=== PATIENT | female | born 1940 | race African-American/Black ===

== ENCOUNTER 2017-12-12 09:00 | Inpatient (IN) | payer OTHER ==
[2017-12-12] MEDS ORDERED: LEVALBUTEROL 1.25 MG/3 ML NEB ONE ×2 (09:20→09:40)
[2017-12-12 09:47] LABS: Absolute Lymphocytes (CBC) 1.8 K/uL (0.7-4.9); Absolute Monocytes 1.2 K/uL (0.1-1.3); Absolute Neutrophil 15.9 K/uL (1.8-8.0); Basophils % 0.8 % (0-1.3); Eosinophils % 1.3 % (0-4.4); Hematocrit 38.5 % (36.0-45.0); Lymphocytes % 9.4 % (15.3-44.8); MCH 30.4 pg (27.0-35.0); MPV 8.5 fL (7.6-11.3); Monocytes % 6.1 % (3.3-12.3); RBC Red Blood Cell Count 4.14 M/uL (3.86-4.86)
[2017-12-12 09:58] LABS: Potassium 4.2 mEq/L (3.6-5.0)
--- NOTE | 2017-12-12 10:08 | RAD REPORT ---
EXAM DESCRIPTION: RAD - Chest Single View - 12/12/2017 9:32 am CLINICAL HISTORY: Productive cough, shortness of breath COMPARISON: 01/09/2017, 10/05/2014 FINDINGS: Portable technique limits examination quality. Mild bilateral interstitial lung opacities are present, probably representing mild interstitial pneum onitis or interstitial pulmonary edema. The heart is normal in size. Tortuous thoracic aorta is seen. This is accentuated by patient rotation.No fracture is identified.
[2017-12-12] MEDS ORDERED: Levofloxacin 750mg IV 750 MG/150 ML BAG IV ONE (10:47)
[2017-12-12] MEDS ORDERED: CEFTRIAXONE/SWI 1gm 1 GM/10 ML SYR ONE (10:48)
[2017-12-12 11:24] LABS: Blood Morphology Comment NOT SEEN (NOT SEEN); Platelet Estimate ADEQ; Urine White Blood Cell Casts OK
--- NOTE | 2017-12-12 11:31 | RAD REPORT ---
EXAM DESCRIPTION: CT - Chest For Pe Angio - 12/12/2017 11:11 am CLINICAL HISTORY: Cough, dyspnea, shortness of breath COMPARISON: Chest film December 12 TECHNIQUE: Dynamically enhanced 3 mm thick images of the chest were obtained during administration o f approximately 150mL Isovue 370 IV contrast. Coronal and oblique reconstruction images were generate d and reviewed. Exam utilizes a protocol to evaluate the pulmonary arterial tree. All CT scans are performed using dose optimization technique as appropriate and may include automated exposure control or mA/KV adjustment according to patient size. FINDINGS: No pulmonary emboli are identified. The aorta as imaged shows no acute or suspicious finding. No pericardial thickening or effusion. Patchy airspace opacification is present in the posterior gutter on the right. There is right lower l obe bronchial wall thickening. Reactive type lymph nodes are seen right hilum. Right upper lobe bronc hial wall thickening is present to a lesser degree. No left lung field acute infiltrate. There are sc arring changes and minimal calcified plaquing at the left diaphragmatic pleura. No pneumothorax. No p leural based mass. No mediastinal or hilar suspicious masses. No chest wall masses or abnormal axillary lymphadenopathy. The limited upper abdomen imaging shows renal cysts on the partially imaged left kidney. Right kidney is not imaged. IMPRESSION: No pulmonary emboli identified. Atelectasis versus patchy pneumonia in the posterior gutter on the right. Patient has right-sided bro nchial wall thickening supporting right-sided infectious/inflammatory process.
--- NOTE | 2017-12-12 12:08 | EDPHYS ---
Physician Documentation [facility] Name: Coreen Hussein Age: 77 yrs Sex: Female : 1940 Arrival Date: 12/12/2017 Time: 09:04 Bed 5 Private MD: Juan Lam V ED Physician Carlos Trevizo HPI: 12/12 09:26 This 77 yrs old Black Female presents to ER via Ambulatory with complaints of rn Congestion. 09:26 The patient or guardian reports cough, difficulty breathing. Onset: The rn symptoms/episode began/occurred 4 day(s) ago. Severity of symptoms: At their worst the symptoms were moderate, in the emergency department the symptoms are unchanged. Associated signs and symptoms: Pertinent negatives: chest pain, fever, rhinorrhea, vomiting. The patient has not experienced similar symptoms in the past. Reports cough, yellow sputum, and sob for 4 days, not getting better, no lung problems, no oxygen at home. . Historical: - Allergies: 09:20 No Known Allergies; hb - Home Meds: 09:20 Lisinopril Oral [Active]; Nifedipine Oral [Active]; loratadine oral oral [Active]; hb Simvastatin Oral [Active]; - PMHx: 09:20 Hypertension; hb - PSHx: 09:20 Tubal ligation; hb - Immunization history:: Adult Immunizations up to date, Pneumococcal vaccine is up to date, Flu vaccine is up to date. - Social history:: Smoking status: Patient/guardian denies using tobacco. - Family history:: not pertinent. - Hospitalizations: : No recent hospitalization is reported. ROS: 09:26 Constitutional: Negative for fever, chills, and weight loss, Eyes: Negative for injury, rn pain, redness, and discharge, ENT: Negative for injury, pain, and discharge, Neck: Negative for injury, pain, and swelling, Cardiovascular: Negative for chest pain, palpitations, and edema, Respiratory: Negative for wheezing, and pleuritic chest pain Abdomen/GI: Negative for abdominal pain, nausea, vomiting, diarrhea, and constipation, Back: Negative for injury and pain, MS/Extremity: Negative for injury and deformity, Skin: Negative for injury, rash, and discoloration, Neuro: Negative for headache, weakness, numbness, tingling, and seizure. Exam: 09:26 Constitutional: This is a well developed, well nourished patient who is awake, alert, rn and in no acute distress. Head/Face: Normocephalic, atraumatic. Eyes: Pupils equal round and reactive to light, extra-ocular motions intact. Lids and lashes normal. Conjunctiva and sclera are non-icteric and not injected. Cornea within normal limits. Periorbital areas with no swelling, redness, or edema. ENT: no stridor Neck: Trachea midline, no thyromegaly or masses palpated, and no cervical lymphadenopathy. Supple, full range of motion without nuchal rigidity, or vertebral point tenderness. No Meningismus. Cardiovascular: Regular rate and rhythm with a normal S1 and S2. No gallops, murmurs, or rubs. Normal PMI, no JVD. No pulse deficits. Respiratory: + mild tachypnea, no retractions, diminished bibasilar breath sounds, no wheezing Abdomen/GI: Soft, non-tender. No evidence of tenderness throughout. MS/ Extremity: Pulses equal, no cyanosis. Neurovascular intact. Full, normal range of motion. Equal circumference. Neuro: Awake and alert, GCS 15, oriented to person, place, time, and situation. Cranial nerves II-XII grossly intact. Motor strength 5/5 in all extremities. Sensory grossly intact. Cerebellar exam normal. Normal gait. Vital Signs: 09:15 BP 138 / 76; Pulse 88; Resp 24; Temp 98; Pulse Ox 71% on R/A; Pain 0/10; hb 09:18 Pulse Ox 86% on 3 lpm NC; hb 09:45 Pulse 93; Resp 28; Pulse Ox 82% on Nebulizer Mask; sv 10:24 BP 133 / 85; Pulse 87; Resp 28; Pulse Ox 100% on 40% BiPAP; sv 10:55 BP 134 / 82; Pulse 89; Resp 26; Pulse Ox 97% on 3 lpm NC; sv 11:15 Pulse 83; Resp 28; Pulse Ox 98% on 40% BiPAP; sv 12:00 BP 136 / 81; Pulse 79; Resp 25; Pulse Ox 98% on 40% BiPAP; sv 12:38 BP 145 / 81; Pulse 81; Resp 28; Pulse Ox 99% on 40% BiPAP; sv 13:56 BP 127 / 78; Pulse 74; Resp 24; Pulse Ox 95% on 40% BiPAP; sv 14:56 BP 122 / 78; Pulse 77; Resp 25; Pulse Ox 97% on 40% BiPAP; sv 09:45 Dr Trevizo informed of O2 sat and pt is receiving nebulizer treatment at this time. BIPAP sv ordered. MDM: 09:09 Patient medically screened. rn 12:06 Differential Diagnosis: Bronchitis Upper Respiratory Infection Viral Syndrome rn Pneumonia. Data reviewed: vital signs, nurses notes, lab test result(s), radiologic studies, CT scan, plain films, and as a result, I will admit patient. Counseling: I had a detailed discussion with the patient and/or guardian regarding: the historical points, exam findings, and any diagnostic results supporting the discharge/admit diagnosis, lab results, radiology results, the need for further work-up and treatment in the hospital. Response to treatment: the patient's symptoms have mildly improved after treatment, and as a result, I will admit patient. Admission orders: after a detailed discussion of the patient's condition and case, the admit orders are written by me. 12/12 09:15 Order name: Blood Culture Adult (2) rn 12/12 09:15 Order name: BMP; Complete Time: 10:41 rn 12/12 09:15 Order name: BNP; Complete Time: 11:27 rn 12/12 09:15 Order name: CBC with Diff; Complete Time: 11:27 rn 12/12 09:15 Order name: Troponin (emerg Dept Use Only); Complete Time: 10:41 rn 12/12 09:15 Order name: Procalcitonin; Complete Time: 10:41 rn 12/12 09:15 Order name: XRAY CXR (1 view); Complete Time: 10:41 rn 12/12 09:16 Order name: Flu; Complete Time: 10:41 rn 12/12 09:48 Order name: CBC Smear Scan; Complete Time: 11:27 EDMS 12/12 10:08 Order name: BIPAP sv 12/12 10:42 Order name: CT Chest For PE Angio; Complete Time: 12:00 rn 12/12 09:15 Order name: EKG; Complete Time: 09:16 rn 12/12 09:15 Order name: Cardiac monitoring; Complete Time: 09:45 rn 12/12 09:15 Order name: EKG - Nurse/Tech; Complete Time: 09:45 rn 12/12 09:15 Order name: IV Saline Lock; Complete Time: 09:44 rn 12/12 09:15 Order name: Labs collected and sent; Complete Time: :44 rn 12/12 09:15 Order name: O2 Per Protocol; Complete Time: :44 rn 12/12 09:15 Order name: O2 Sat Monitoring; Complete Time: :44 rn Administered Medications: 09:22 Drug: Xopenex 1.25 mg Route: Inhalation; sv 09:44 Drug: Xopenex 1.25 mg Route: Inhalation; sv 09:44 Drug: Xopenex 1.25 mg Route: Inhalation; sv 10:50 Drug: Rocephin 1 grams Route: IV; Rate: calculated rate; Site: left antecubital; sv 10:55 Follow up: Response: No adverse reaction; IV Status: Completed infusion; IV Intake: 10mlsv 10:55 Drug: LevaQUIN 750 mg Volume: 150 ml; Route: IVPB; Infused Over: 90 mins; Site: left sv antecubital; 12:52 Follow up: Response: No adverse reaction; IV Status: Completed infusion; IV Intake: sv 150ml 10:58 CANCELLED (change order): Rocephin - (cefTRIAXone) 1 grams IVPB once over 30 mins; (mix sv in 50 mL NS) Disposition: 12/12/17 12:08 Hospitalization ordered by Juan Lam for Inpatient Admission. Preliminary diagnosis are Pneumonia, Hypoxemia. - Bed requested for Telemetry/MedSurg (Inpatient). - Status is Inpatient Admission. sv - Condition is Stable. - Problem is new. - Symptoms have improved. UTI on Admission? No Signatures: Dispatcher [employer] Julia Ozuna RN RN sv Williams, Irene, RN RN iw Nieto, Roman, MD MD rn Baxter, Heather, RN RN Corrections: (The following items were deleted from the chart) 10:58 10:44 Rocephin - (cefTRIAXone) 1 grams IVPB once over 30 mins; (mix in 50 mL NS) sv ordered. rn
--- NOTE | 2017-12-12 12:08 | ER ---
Nurse's Notes [facility] Name: Coreen Hussein Age: 77 yrs Sex: Female : 1940 Arrival Date: 12/12/2017 Time: 09:04 Bed 5 Private MD: Juan Lam V Diagnosis: Pneumonia;Hypoxemia Presentation: 12/12 09:16 Presenting complaint: Patient states: Productive cough with yellow sputum and SOB x 4 hb days. Denies pain/fever. Transition of care: patient was not received from another setting of care. Resp Distress? Mild respiratory distress is noted. Onset of symptoms is unknown. Care prior to arrival: None. 09:16 Method Of Arrival: Ambulatory hb 09:16 Acuity: ABUNDIO 2 hb Historical: - Allergies: 09:20 No Known Allergies; hb - Home Meds: 09:20 Lisinopril Oral [Active]; Nifedipine Oral [Active]; loratadine oral oral [Active]; hb Simvastatin Oral [Active]; - PMHx: 09:20 Hypertension; hb - PSHx: 09:20 Tubal ligation; hb - Immunization history:: Adult Immunizations up to date, Pneumococcal vaccine is up to date, Flu vaccine is up to date. - Social history:: Smoking status: Patient/guardian denies using tobacco. - Family history:: not pertinent. - Hospitalizations: : No recent hospitalization is reported. Screenin:20 Abuse screen: Denies threats or abuse. Denies injuries from another. Nutritional hb screening: No deficits noted. Tuberculosis screening: No symptoms or risk factors identified. Fall Risk None identified. Assessment: 09:20 General: Appears uncomfortable, slender, Behavior is calm, cooperative, appropriate for sv age. General: Denies fever. Pain: Denies pain. Neuro: Level of Consciousness is awake, alert, obeys commands, Oriented to person, place, time, situation, Moves all extremities. Full function Speech is normal. Cardiovascular: Heart tones S1 S2 present Patient's skin is warm and dry. Pulses are 3+ in right radial artery and left radial artery Rhythm is sinus rhythm. Respiratory: Reports shortness of breath at rest on exertion cough that is productive, persistent yellow in color x 4 days Airway is patent Respiratory effort is even, labored, Respiratory pattern is tachypnea Breath sounds are diminished bilaterally. in left posterior lower lobe, right posterior middle lobe and right posterior lower lobe. Derm: Skin is pink, warm \T\ dry. Musculoskeletal: Range of motion: intact in all extremities. 09:56 Reassessment: Katerin from RT here to place pt on BIPAP. sv 10:55 Reassessment: Patient appears in no apparent distress at this time. Patient and/or sv family updated on plan of care and expected duration. Pain level reassessed. Patient is alert, oriented x 3, equal unlabored respirations, skin warm/dry/pink. 12:38 Reassessment: Patient appears in no apparent distress at this time. Patient and/or sv family updated on plan of care and expected duration. Pain level reassessed. Patient is alert, oriented x 3, equal unlabored respirations, skin warm/dry/pink. Patient states feeling better. Patient states symptoms have improved. Respiratory: Respiratory effort is even, unlabored, Respiratory pattern is tachypnea. 14:02 Reassessment: Patient appears in no apparent distress at this time. Patient and/or sv family updated on plan of care and expected duration. Pain level reassessed. Patient is alert, oriented x 3, equal unlabored respirations, skin warm/dry/pink. Patient states feeling better. Patient states symptoms have improved. 14:25 Reassessment: RT paged to help transfer pt upstairs. sv 14:50 Reassessment: Rt paged to help transfer pt upstairs. sv 15:14 Reassessment: Patient appears in no apparent distress at this time. Patient and/or sv family updated on plan of care and expected duration. Pain level reassessed. Patient is alert, oriented x 3, equal unlabored respirations, skin warm/dry/pink. Patient states feeling better. Patient states symptoms have improved. Vital Signs: 09:15 BP 138 / 76; Pulse 88; Resp 24; Temp 98; Pulse Ox 71% on R/A; Pain 0/10; hb 09:18 Pulse Ox 86% on 3 lpm NC; hb 09:45 Pulse 93; Resp 28; Pulse Ox 82% on Nebulizer Mask; sv 10:24 BP 133 / 85; Pulse 87; Resp 28; Pulse Ox 100% on 40% BiPAP; sv 10:55 BP 134 / 82; Pulse 89; Resp 26; Pulse Ox 97% on 3 lpm NC; sv 11:15 Pulse 83; Resp 28; Pulse Ox 98% on 40% BiPAP; sv 12:00 BP 136 / 81; Pulse 79; Resp 25; Pulse Ox 98% on 40% BiPAP; sv 12:38 BP 145 / 81; Pulse 81; Resp 28; Pulse Ox 99% on 40% BiPAP; sv 13:56 BP 127 / 78; Pulse 74; Resp 24; Pulse Ox 95% on 40% BiPAP; sv 14:56 BP 122 / 78; Pulse 77; Resp 25; Pulse Ox 97% on 40% BiPAP; sv 09:45 Dr Trevizo informed of O2 sat and pt is receiving nebulizer treatment at this time. BIPAP sv ordered. ED Course: 09:04 Patient arrived in ED. mr 09:04 Juan Lam MD is Private Physician. mr 09:09 Carlos Trevizo MD is Attending Physician. rn 09:18 Triage completed. hb 09:18 Arm band placed on right wrist. hb 09:19 Julia Cartagena RN is Primary Nurse. sv 09:20 Patient has correct armband on for positive identification. Placed in gown. Bed in low sv position. Call light in reach. hospital monitor on. Pulse ox on. NIBP on. Door closed. Head of bed elevated. 09:20 Initial lab(s) drawn, by me, sent to lab. First set of blood cultures drawn by me. sv Inserted saline lock: 20 gauge in left antecubital area, using aseptic technique. Blood collected. Flushed left antecubital with 5 ml normal saline. 09:27 X-ray completed. Portable x-ray completed in exam room. Patient tolerated procedure mh1 well. 09:31 XRAY CXR (1 view) In Process Unspecified. EDMS 09:35 Second set of blood cultures drawn by me. sv 09:50 EKG done, by cardiac cath technician. reviewed by Carlos Trevizo MD. at1 10:08 O2 via BIPAP 40% 12/6, rate-10. sv 10:58 BIPAP Sent. sv 11:[address] via stretcher. sv 11:11 CT Chest For PE Angio In Process Unspecified. EDMS 12:00 Awaiting disposition, Awaiting re-evaluation by ER provider. sv 12:07 Juan Lam MD is Hospitalizing Provider. rn 12:53 Awaiting bed assignment. sv 14:02 No provider procedures requiring assistance completed. Patient admitted, IV remains in sv place. intact. 15:05 EKG done, by cardiac cath technician. reviewed by Carlos Trevizo MD Repeat EKG. at1 Administered Medications: 09:22 Drug: Xopenex 1.25 mg Route: Inhalation; sv 09:44 Drug: Xopenex 1.25 mg Route: Inhalation; sv 09:44 Drug: Xopenex 1.25 mg Route: Inhalation; sv 10:50 Drug: Rocephin 1 grams Route: IV; Rate: calculated rate; Site: left antecubital; sv 10:55 Follow up: Response: No adverse reaction; IV Status: Completed infusion; IV Intake: 10mlsv 10:55 Drug: LevaQUIN 750 mg Volume: 150 ml; Route: IVPB; Infused Over: 90 mins; Site: left sv antecubital; 12:52 Follow up: Response: No adverse reaction; IV Status: Completed infusion; IV Intake: sv 150ml 10:58 CANCELLED (change order): Rocephin - (cefTRIAXone) 1 grams IVPB once over 30 mins; (mix sv in 50 mL NS) Intake: 10:55 IV: 10ml; Total: 10ml. sv 12:52 IV: 150ml; Total: 160ml. sv Outcome: 12:08 Decision to Hospitalize by Provider. rn 14:17 Admitted to Tele accompanied by tech, via stretcher, room 403, with oxygen, with chart, sv Report called to Radha KURTZ 14:17 Condition: stable 14:17 Condition: improved 14:17 Instructed on the need for admit. 15:31 Patient left the ED. sv Signatures: Dispatcher [employer] Julia Ozuna, RN Evelina Messina Loreto Saldivar 1 Carlos Trevizo MD MD rn gonzales, Amanda, log rafter EKG Tat1 Jaymie Tong RN RN hb Corrections: (The following items were deleted from the chart) 09:53 09:45 Pulse 93bpm; Resp 28bpm; Pulse Ox 82% Nebulizer Mask; sv sv
[2017-12-12] MEDS ORDERED: ONDANSETRON 4 MG/2 ML VIAL IV PRN (15:33)
[2017-12-12] MEDS ORDERED: IPRATROPIUM BROM 0.5MG/2.5ML NEB PRN (15:33)
[2017-12-12] MEDS ORDERED: ALBUTEROL 2.5 MG/3 ML NEB SOL NEB PRN (15:33)
[2017-12-12] MEDS ORDERED: ACETAMINOPHEN 500 MG TAB PO PRN (15:33)
[2017-12-12 17:53] VITALS: BMI 26.4
[2017-12-12] MEDS: CEFTRIAXONE/SWI 1gm 1 GM/10 ML SYR IV SCH (21:35)
--- NOTE | 2017-12-12 21:59 | P.HP ---
Certification for Inpatient Patient admitted to: Inpatient With expected LOS: >2 Midnights Practitioner: I am a practitioner with admitting privileges, knowledge of patient current condition, hospital course, and medical plan of care. Services: Services provided to patient in accordance with Admission requirements found in Title 42 Section 412.3 of the Code of Federal Regulations Patient History Date of Service: 12/12/17 Reason for admission: COUGH, FEVER, DYSPNEA History of Present Illness: MS. LORA COMES WITH ABOVE SYMPTOMS FOR ABOUT 5 DAYS. SHE HAD LOW OXYGEN DOWN TO 77% ON RA IN ER WITH WBC ELEVATION TO 19K AND CXR SUGGESTIVE OF PNEUMONIA. SHE IS USUALLY IN A GOOD HEALTH. Allergies No Known Drug Allergies Allergy (Unverified 10/05/14 17:39) Unknown No Known Allergies Allergy (Uncoded 12/12/17 15:34) Unknown Home Medications: Calcium Carbonate [Oscal*] 500 mg PO DAILY 05/14/12 Loratadine [Claritin*] 10 mg PO DAILY 05/14/12 Nifedipine [Adalat cc] 90 mg PO DAILY 05/14/12 Simvastatin 40 mg PO DAILY 05/14/12 Aspirin [Missy Chewable] 81 mg PO DAILY 12/12/17 Fluticasone [Flonase 50mcg Nasal [place]] 2 sprays NS DAILY PRN 12/12/17 Losartan Potassium [Cozaar] 50 mg PO DAILY 12/12/17 - Past Medical/Surgical History Has patient received pneumonia vaccine in the past: Yes Diabetic: No -: HTN -: cholesterol -: seasonal allergies -: tubal ligation - Social History Smoking Status: Current every day smoker Alcohol use: Yes CD- Drugs: No Caffeine use: No Place of Residence: Home Review of Systems 10-point ROS is otherwise unremarkable General: Weakness, Other Respiratory: Cough, Shortness of Breath Physical Examination - Vital Signs Temperature: 98.5 F Blood Pressure: 111/67 Pulse: 82 Respirations: 14 Pulse Ox (%): 95 - Physical Exam General: Alert, Mild distress HEENT: Atraumatic, PERRLA, Mucous membr. moist/pink, EOMI, Sclerae nonicteric Neck: Supple, 2+ carotid pulse no bruit, No LAD, Without JVD or thyroid abnormality Respiratory: Diminished, Crackles/rales Cardiovascular: Regular rate/rhythm, Normal S1 S2 Gastrointestinal: Normal bowel sounds, No tenderness Musculoskeletal: No tenderness Integumentary: No rashes Neurological: Normal gait, Normal speech, Normal strength at 5/5 x4 extr, Normal tone, Normal affect Lymphatics: No axilla or inguinal lymphadenopathy - Studies Laboratory Data (last 24 hrs) 12/12/17 09:20: WBC 19.3 H, Hgb 12.6, Hct 38.5, Plt Count 298 12/12/17 09:20: B-Natriuretic Peptide 97 12/12/17 09:20: Sodium 140, Potassium 4.2, BUN 19, Creatinine 1.12 H, Glucose 116 Microbiology Data (last 24 hrs): 12/12/17 09:35 Nasopharnyx Influenza Type A Antigen Screen - Final 12/12/17 09:35 Nasopharnyx Influenza Type B Antigen Screen - Final Assessment and Plan - Problems (Diagnosis) (1) Bacterial pneumonia Current Visit: Yes Status: Acute Plan: AGREE WITH LEVAQUIN WBC DAILY FU OXYGEN SAT NEBS MOSTLY WILL GO HOME IN A DAY OR TWO. - Advance Directives Does patient have a Living Will: Yes Does patient have a Durable POA for Healthcare: Yes
[2017-12-13 04:39] LABS: Absolute Lymphocytes (CBC) 1.6 K/uL (0.7-4.9); Absolute Monocytes 1.3 K/uL (0.1-1.3); Absolute Neutrophil 13.8 K/uL (1.8-8.0); Basophils % 0.4 % (0-1.3); Eosinophils % 2.1 % (0-4.4); Hematocrit 35.9 % (36.0-45.0); Lymphocytes % 9.3 % (15.3-44.8); MCH 29.9 pg (27.0-35.0); MCV 93.4 fL (80-100); MPV 8.8 fL (7.6-11.3); Monocytes % 7.4 % (3.3-12.3); RBC Red Blood Cell Count 3.85 M/uL (3.86-4.86)
[2017-12-13 05:32] LABS: Potassium 4.7 mEq/L (3.6-5.0)
--- NOTE | 2017-12-13 08:01 | EKG ---
Test Date: 2017-12-12 Test Time: 14:56:02 Business Analytics Intern: SHEREE MEASUREMENT RESULTS: Intervals: Rate: 78 [place]: 130 QRSD: 112 QT: 394 QTc: 449 [place]: P: 66 [place]: 130 QRS: -63 T: 51 INTERPRETIVE STATEMENTS: Normal sinus rhythm Left anterior fascicular block Minimal voltage criteria for LVH, may be normal variant Anterior infarct, age undetermined Abnormal ECG Compared to ECG 12/12/2017 09:41:47 No significant changes Electronically Signed On 12-13-17 07:59:22 CDT by Gonzalez Do
--- NOTE | 2017-12-13 08:02 | EKG ---
Test Date: 2017-12-12 Test Time: 09:41:47 Technical Support Engineer: SHEREE MEASUREMENT RESULTS: Intervals: Rate: 95 [place]: 130 QRSD: 112 QT: 362 QTc: 454 [place]: P: 73 [place]: 130 QRS: -68 T: 68 INTERPRETIVE STATEMENTS: Normal sinus rhythm Left anterior fascicular block Moderate voltage criteria for LVH, may be normal variant Anterior infarct, age undetermined Abnormal ECG Compared to ECG 01/09/2017 10:23:03 No significant changes Electronically Signed On 12-13-17 08:02:13 CDT by Gonzalez Do
[2017-12-13] MEDS: NIFEDIPINE XL 90 MG TABLET PO SCH (08:21)
[2017-12-13] MEDS: CEFTRIAXONE/SWI 1gm 1 GM/10 ML SYR IV SCH ×2 (08:21→20:37)
[2017-12-13] MEDS: ASPIRIN 81 MG CHEWABLE TABLET PO SCH (08:21)
[2017-12-13] MEDS: LOSARTAN POTASSIUM 50 MG TABLET PO SCH (08:22)
[2017-12-13] MEDS: LORATADINE 10 MG TAB PO SCH (08:22)
[2017-12-13] MEDS: Levofloxacin500mg IV 500 MG/100 ML BAG IV SCH (11:51)
--- NOTE | 2017-12-13 13:15 | P.PN ---
Subjective Date of Service: 12/13/17 Chief Complaint: COUGH, FEVER, DYSPNEA Subjective: Improving (STILL DYSPNEIC BUT BETTER.) Review of Systems 10-point ROS is otherwise unremarkable General: Weakness, Malaise Physical Examination - Vital Signs Temperature: 98 F Blood Pressure: 133/63 Pulse: 83 Respirations: 20 Pulse Ox (%): 95 - Physical Exam General: Alert, Mild distress HEENT: Atraumatic, PERRLA, EOMI Neck: Supple, JVD not distended Respiratory: Diminished Cardiovascular: Regular rate/rhythm, Normal S1 S2 Gastrointestinal: Normal bowel sounds, No tenderness Musculoskeletal: No tenderness Integumentary: No rashes Neurological: Normal speech, Normal tone, Normal affect Lymphatics: No axilla or inguinal lymphadenopathy - Studies Microbiology Data (last 24 hrs): 12/12/17 09:35 Blood - Blood Anaerobic Blood Culture - Final 12/12/17 09:35 Nasopharnyx Influenza Type A Antigen Screen - Final 12/12/17 09:35 Nasopharnyx Influenza Type B Antigen Screen - Final Medications List Reviewed: Yes Assessment And Plan - Current Problems (Diagnosis) (1) Bacterial pneumonia Onset Date: 12/13/17 Current Visit: Yes Status: Acute Plan: AGREE WITH LEVAQUIN WBC DAILY FU OXYGEN SAT NEBS MOSTLY WILL GO HOME IN A DAY OR TWO. IV ABX WILL DC AFTER WBC IS CLOSE TO NORMAL AND SHE FEELS WELL.
[2017-12-13] MEDS: ATORVASTATIN 20 MG TAB PO SCH (20:36)
[2017-12-14 07:22] LABS: Absolute Lymphocytes (CBC) 1.7 K/uL (0.7-4.9); Absolute Monocytes 0.8 K/uL (0.1-1.3); Absolute Neutrophil 12.1 K/uL (1.8-8.0); Basophils % 0.8 % (0-1.3); Eosinophils % 2.4 % (0-4.4); Hematocrit 36.7 % (36.0-45.0); Lymphocytes % 11.1 % (15.3-44.8); MCV 92.8 fL (80-100); MPV 8.3 fL (7.6-11.3); Monocytes % 5.5 % (3.3-12.3); RBC Red Blood Cell Count 3.96 M/uL (3.86-4.86)
[2017-12-14 07:35] LABS: Potassium 4.7 mEq/L (3.6-5.0)
[2017-12-14] MEDS: CEFTRIAXONE/SWI 1gm 1 GM/10 ML SYR IV SCH ×2 (08:35→21:12)
[2017-12-14] MEDS: LOSARTAN POTASSIUM 50 MG TABLET PO SCH (08:35)
[2017-12-14] MEDS: LORATADINE 10 MG TAB PO SCH (08:35)
[2017-12-14] MEDS: NIFEDIPINE XL 90 MG TABLET PO SCH (08:36)
[2017-12-14] MEDS: ASPIRIN 81 MG CHEWABLE TABLET PO SCH (08:36)
[2017-12-14] MEDS: Levofloxacin500mg IV 500 MG/100 ML BAG IV SCH (11:20)
[2017-12-14] MEDS: ATORVASTATIN 20 MG TAB PO SCH (21:12)
--- NOTE | 2017-12-14 22:10 | P.PN ---
Subjective Date of Service: 12/14/17 Chief Complaint: COUGH, FEVER, DYSPNEA Subjective: Improving (LOT BETTER, STILL LOW OXYGEN) Review of Systems 10-point ROS is otherwise unremarkable General: Weakness, Malaise Respiratory: Shortness of Breath Physical Examination - Vital Signs Temperature: 98.4 F Blood Pressure: 115/66 Pulse: 60 Respirations: 18 Pulse Ox (%): 95 - Physical Exam General: Mild distress HEENT: Atraumatic, PERRLA, EOMI Neck: Supple, JVD not distended Respiratory: Clear to auscultation bilaterally, Normal air movement Cardiovascular: Regular rate/rhythm, Normal S1 S2 Gastrointestinal: Normal bowel sounds, No tenderness Musculoskeletal: No tenderness Integumentary: No rashes Neurological: Normal speech, Normal tone, Normal affect Lymphatics: No axilla or inguinal lymphadenopathy - Studies Medications List Reviewed: Yes Assessment And Plan - Current Problems (Diagnosis) (1) Bacterial pneumonia Onset Date: 12/13/17 Current Visit: Yes Status: Acute Plan: AGREE WITH LEVAQUIN WBC DAILY FU OXYGEN SAT NEBS MOSTLY WILL GO HOME IN A DAY OR TWO. IV ABX WILL DC AFTER WBC IS CLOSE TO NORMAL AND SHE FEELS WELL. MAY BE ABLE TO GO HOME IN AM STABLE AND IMPROVED.
[2017-12-15 07:25] LABS: Absolute Monocytes 0.8 K/uL (0.1-1.3); Absolute Neutrophil 9.9 K/uL (1.8-8.0); Basophils % 1.2 % (0-1.3); Eosinophils % 3.2 % (0-4.4); Hematocrit 36.6 % (36.0-45.0); Lymphocytes % 14.8 % (15.3-44.8); MCV 92.5 fL (80-100); MPV 8.2 fL (7.6-11.3); Monocytes % 6.2 % (3.3-12.3); RBC Red Blood Cell Count 3.96 M/uL (3.86-4.86)
[2017-12-15 07:36] LABS: Potassium 4.6 mEq/L (3.6-5.0)
[2017-12-15 07:37] LABS: Magnesium 1.7 mg/dL (1.8-2.5)
[2017-12-15] MEDS: NIFEDIPINE XL 90 MG TABLET PO SCH (08:46)
[2017-12-15] MEDS: LORATADINE 10 MG TAB PO SCH (08:46)
[2017-12-15] MEDS: CEFTRIAXONE/SWI 1gm 1 GM/10 ML SYR IV SCH (08:46)
[2017-12-15] MEDS: LOSARTAN POTASSIUM 50 MG TABLET PO SCH (08:46)
[2017-12-15] MEDS: ASPIRIN 81 MG CHEWABLE TABLET PO SCH (08:46)
[2017-12-15] MEDS: Levofloxacin500mg IV 500 MG/100 ML BAG IV SCH (12:38)
--- NOTE | 2017-12-15 13:16 | P.DS ---
Admission Date: 12/12/17 Discharge Date: 12/15/17 Disposition: ROUTINE DISCHARGE Discharge Condition: FAIR Reason for Admission: COUGH, FEVER, DYSPNEA - Problems (1) Bacterial pneumonia Onset Date: 12/13/17 Current Visit: Yes Status: Acute Brief History of Present Illness: MS. LORA COMES WITH ABOVE SYMPTOMS FOR ABOUT 5 DAYS. SHE HAD LOW OXYGEN DOWN TO 77% ON RA IN ER WITH WBC ELEVATION TO 19K AND CXR SUGGESTIVE OF PNEUMONIA. SHE IS USUALLY IN A GOOD HEALTH. Mr lora is going great. She is ready to go home. Levaquin rx. fu in two weeks. Vital Signs/Physical Exam: Temp Pulse Resp BP Pulse Ox 97.9 F 53 18 129/72 98 12/15/17 11:53 12/15/17 11:53 12/15/17 11:53 12/15/17 11:53 12/15/17 11:53 Laboratory Data at Discharge: WBC 13.3 K/uL (4.3-10.9) H 12/15/17 07:15 Hgb 11.9 g/dL (12.0-15.0) L 12/15/17 07:15 Hct 36.6 % (36.0-45.0) 12/15/17 07:15 Plt Count 330 K/uL (152-406) 12/15/17 07:15 Sodium 137 mEq/L (135-145) 12/15/17 07:15 Potassium 4.6 mEq/L (3.6-5.0) 12/15/17 07:15 BUN 12 mg/dL (6-20) 12/15/17 07:15 Creatinine 0.96 mg/dL (0.44-1.00) 12/15/17 07:15 Glucose 100 mg/dL (65-120) 12/15/17 07:15 Magnesium 1.7 mg/dL (1.8-2.5) L 12/15/17 07:15 B-Natriuretic Peptide 97 pg/ml (<=100) 12/12/17 09:20 Home Medications: Calcium Carbonate [Oscal*] 500 mg PO DAILY 05/14/12 Loratadine [Claritin*] 10 mg PO DAILY 05/14/12 Nifedipine [Adalat cc] 90 mg PO DAILY 05/14/12 Simvastatin 40 mg PO DAILY 05/14/12 Aspirin [Missy Chewable] 81 mg PO DAILY 12/12/17 Fluticasone [Flonase 50mcg Nasal [place]] 2 sprays NS DAILY PRN 12/12/17 Losartan Potassium [Cozaar] 50 mg PO DAILY 12/12/17 Levofloxacin [Levaquin] 500 mg PO DAILY #10 tab 12/15/17 New Medications: Levofloxacin [Levaquin] 500 mg PO DAILY #10 tab
[2017-12-15 14:09] VITALS: O2SAT 87
[2017-12-15 16:05] VITALS: BP 169/84; TEMP 98.7
== END 2017-12-15 18:18 | disposition home or self-care (01) | DRG 195 ==
LOC: ER 09:00 → ERHOLD 12:22 → 4TH 14:18
PROVIDERS: ADMIT Internal Medicine; ATTEND Internal Medicine
PROC: 5A09457 Assistance with Respiratory Ventilation, 24-96 Consecutive Hours, Continuous Positive Airway Pressure (ICD-10-PCS; principal; 2017-12-12)
DX: J15.9 Unspecified bacterial pneumonia (principal); I10 Essential (primary) hypertension; F17.210 Nicotine dependence, cigarettes, uncomplicated
CPT/HCPCS: 36415; 71045; 71275; 80048; 83735; 83880; 84145; 84484; 85025; 87040; 87070; 87205; 87804; 93005; 94660; 94760; 96365; 96366; 96375; 99285; J0696; Q9967

== ENCOUNTER 2024-02-20 06:00 | Inpatient (IN) | payer OTHER ==
--- NOTE | 2024-02-15 10:08 | RAD REPORT ---
EXAM DESCRIPTION: Alexandro Delacruz (2 Views)02/15/2024 9:43 am CLINICAL HISTORY: Preop for hip surgery COMPARISON: 2018 FINDINGS: The lungs appear clear of acute infiltrate. The heart is mildly enlarged. Aorta is tortuous/ectatic IMPRESSION: No acute abnormalities displayed
[2024-02-15 10:24] LABS: Absolute Basophils 0.1 K/uL (0-0.5); Absolute Eosinophils 0.2 K/uL (0-0.5); Absolute Lymphocytes (CBC) 1.8 K/uL (0.7-4.9); Absolute Monocytes 0.6 K/uL (0.1-1.3); Absolute Neutrophil 5.1 K/uL (1.8-8.0); Basophils % 0.7 % (0-1.3); Eosinophils % 2.6 % (0-4.4); Hematocrit 41.8 % (36.0-45.0); Hemoglobin 13.9 g/dL (12.0-15.0); Lymphocytes % 23.8 % (15.3-44.8); MCHC 33.4 g/dL (32.0-36.0); MCV 95.7 fL (80-100); MPV 9.2 fL (7.6-11.3); Monocytes % 7.2 % (3.3-12.3); Neutrophils % 65.7 % (41.7-73.7); Platelets 224 thou/uL (152-406); RBC Red Blood Cell Count 4.37 M/uL (3.86-4.86); Red Cell Distribution Width 13.5 % (12.1-15.2)
[2024-02-15 10:30] LABS: PT Prothrombin Time 12.3 SECONDS (9.5-12.5); PTT, Activated Partial Thromb 31.8 SECONDS (24.3-36.9); Protime INR 1.12
[2024-02-15 10:33] LABS: Specific Gravity 1.023 (1.005-1.030); Sqamous Epithelial <5 /HPF (None Seen); Urine Bacteria None Seen /HPF (<20); Urine Bilirubin NEGATIVE (Negative); Urine Blood Negative (Negative); Urine Clarity Extremely Turbid (Clear); Urine Color Light-Yellow (Yellow); Urine Culture Reflex Order NOT NEEDED; Urine Glucose NEGATIVE (Negative); Urine Ketones NEGATIVE (Negative); Urine Microscopic Reflex YN ORDER UMIC; Urine Mucus Slight /HPF (None Seen); Urine Nitrite NEGATIVE (Negative); Urine Protein 1+ (Negative); Urine RBC <5 /HPF (None Seen); Urine Urobilinogen Normal (Normal); Urine WBC <5 /HPF (<5); Urine pH 5.5 (5.0-7.0)
[2024-02-15 10:41] LABS: Albumin 3.5 g/dL (3.4-5.0); Albumin/Globulin Ratio 0.7 (1.1-1.8); Anion Gap 8.3 mEq/L (5.0-15.0); Bilirubin Total 0.6 mg/dL (0.2-1.0); Globulin 5.2 g/dL (2.3-3.5); Potassium 4.3 mEq/L (3.5-5.1); Protein, Total 8.7 g/dL (6.4-8.2)
[2024-02-20] MEDS: TRANEXAMIC ACID 1,000 MG/10 ML VIAL IV ONE (06:19)
[2024-02-20] MEDS: Oxycodone HCl/Acetaminophen 5/325 MG TAB ONE (06:38)
[2024-02-20] MEDS: ACETAMINOPHEN 500 MG TAB ONE (06:38)
[2024-02-20] MEDS: GABAPENTIN 100 MG CAP ONE (06:38)
[2024-02-20] MEDS: CELECOXIB 100 MG CAPSULE ONE (06:39)
[2024-02-20] MEDS: BUPIVACAINE 0.75% (PF) 2 ML SP ONE (06:44)
[2024-02-20] MEDS: MORPHINE SULFATE/PF 1 MG/ML (10 ML AMP) ONE (06:44)
[2024-02-20] MEDS ORDERED: FENTANYL CITR 100 MCG/2 ML ONE (06:48)
[2024-02-20] MEDS ORDERED: propofoL 200 MG/20 ML VIAL IV ONE (06:48)
[2024-02-20] MEDS ORDERED: MIDAZOLAM HCL 2 MG/2 ML INJ ONE (06:48)
[2024-02-20] MEDS: Ringers Lactate 1,000 ML IV ONE ×2 (06:50→08:05)
[2024-02-20] MEDS ORDERED: Phenylephrine HCl 10 MG/ML 1 ML VIAL ONE (06:56)
[2024-02-20] MEDS ORDERED: ROCURONIUM 50 MG/5 ML VIAL IV ONE (06:57)
[2024-02-20] MEDS ORDERED: NS 0.9% VIAL 10 ML ONE (06:57)
[2024-02-20] MEDS: CEFAZOLIN SODIUM 2 GM/VIAL ONE (07:00)
[2024-02-20] MEDS ORDERED: EPHEDRINE SULF 50 MG/ML VIAL ONE (07:24)
[2024-02-20] MEDS ORDERED: GLYCOPYRROLATE 0.2 MG/ML SYR ONE (07:25)
[2024-02-20] MEDS ORDERED: KETOROLAC 30 MG/ML INJ ONE (07:48)
[2024-02-20] MEDS ORDERED: dexAMETHasone 4 MG/ML VIAL ONE (07:48)
[2024-02-20] MEDS ORDERED: ONDANSETRON 4 MG/2 ML VIAL ONE (07:48)
[2024-02-20] MEDS ORDERED: DOCUSATE NA 100 MG CAP PO PRN (09:07)
--- NOTE | 2024-02-20 09:07 | P.BOP ---
Preoperative diagnosis: right hiup arthritis Postoperative diagnosis: same Primary procedure: right total hip arthoplasty Estimated blood loss: 100ccs Anesthesia: General Transferred to: Recovery Room Condition: Good
[2024-02-20] MEDS: SUGAMMADEX SODIUM 200 MG/2 ML VIAL IV ONE (09:15)
[2024-02-20] MEDS: GLYCOPYRROLATE 0.2 MG/ML SYR ONE (09:29)
--- NOTE | 2024-02-20 10:08 | OP ---
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 Procedure: Right total hip arthroplasty using the Teresa system. Estimated Blood Loss: 100 mL. Complications: There were no complications. Indications For Operation: Ms. Hussein is an 83-year-old female who has been suffering with debilitat ing right hip pain for some time. She walks with an assistive device and it is very difficult for he r to get around with severe pain related to her right hip. X-rays demonstrated severe hip destructio n, loss of contour of the acetabulum as well as collapse of the femoral head. Risks, benefits, and a lternatives to different methods of treating this have been discussed with the patient and she has be en cleared by her medical doctor for the procedure and agrees to proceed. Description Of Procedure: The patient was taken to the operating room, spinal anesthesia is obtained by Anesthesia staff. Following this, she was then rolled left side down with axillary roll and appr opriately positioned using hip positioners. Following this, her right lower extremity was then prepp ed and draped in usual sterile fashion for the procedure. After this, general anesthesia was obtaine d by Anesthesia. A standard approach was then taken down carefully through skin and soft tissues. M eticulous hemostasis being maintained using Bovie electrocautery. This leads down through adipose ti ssue. A small stab wound was made in the fascia to palpate the gluteal tendon to ensure this is in t he correct position, it was then carried gently up near the tip of the greater trochanter, was then c urved gently backward with the gluteus muscles being spread using finger pressure. A retractor was u sed to protect the abductors as the sciatic nerve was palpated and protected and placement of a Charn mayelin. After this, some of the fat bursa was removed to allow for better visualization and the externa l rotators and capsule were then taken down and tagged for later repair. This leads to the hip, whic h was gently dislocated from the acetabulum. A standard neck cut was then performed and the attempts were made to size the femoral head, however, it is horribly misshapen somewhat unrewarding. Debride was taken from inside the acetabulum and the acetabular rim is determined as the labrum was removed as well as removal of some osteophytes. After this, it was very slightly deepened and then reamed up to a size 53. There was some overhang and lack of complete contact superiorly as well as some small subchondral cysts, which were curetted out and all soft tissues were removed from the acetabulum and the cup was then placed in standard fashion. It appears to be very well seated. Despite slight abn ormality of the shape of the acetabulum, it definitely was not mobile with a gentle motion of the ins erter or with finger pressure. Decision was made not to place any screws. Attention was then turned to the femur, a box annealer was then used to lateralize, canal finding reamer was placed. It was the n broached down to a size 5, which appeared to be fairly tight. She is quite old and has not been wa lking much, therefore decision was made not to overstuff this. X-ray was taken and the decision was made not to increase the size of the stem as it did appear to be stable in place and to get the next larger size, the possibility of femoral fracture. The liner was then placed in the acetabulum and th e final stem is placed to appropriate depth. It was then trialed with a standard, relocates somewhat easily. It might be a little bit long, however, she is 83 and increased stability is one of our diane n goals as well as pain relief. Therefore, this was selected as our final size. She does come to fu ll extension, although again I do realize this may be a tiny bit long, did give excellent stability w ith full flexion, full adduction, and internal rotation to at least 45 degrees. The final ball was t hen tapped into place and the acetabulum was cleared. It was then relocated and stable in above area s. The wound was again irrigated and the external rotators and capsule were then repaired back to th e trochanter via bone tunnels. The wound was again irrigated and the fascia was closed using heavy V icryl sutures followed by irrigation and closure of the skin using Vicryl followed by alicia. The patient was then placed in Aquacel dressing, awakened, taken to the recovery room in good condition. /MODL Voice ID: [id number] Report ID: [id number]
[2024-02-20 10:59] LABS: Absolute Eosinophils 0.1 K/uL (0-0.5); Absolute Lymphocytes (CBC) 1.4 K/uL (0.7-4.9); Absolute Monocytes 0.3 K/uL (0.1-1.3); Absolute Neutrophil 9.1 K/uL (1.8-8.0); Basophils % 0.2 % (0-1.3); Hematocrit 37.5 % (36.0-45.0); Hemoglobin 12.2 g/dL (12.0-15.0); Lymphocytes % 12.8 % (15.3-44.8); MCH 31.7 pg (27.0-35.0); MCHC 32.5 g/dL (32.0-36.0); MCV 97.7 fL (80-100); MPV 8.7 fL (7.6-11.3); Monocytes % 2.6 % (3.3-12.3); Neutrophils % 83.4 % (41.7-73.7); Platelets 179 thou/uL (152-406); RBC Red Blood Cell Count 3.84 M/uL (3.86-4.86); Red Cell Distribution Width 13.3 % (12.1-15.2)
[2024-02-20 11:18] LABS: Albumin/Globulin Ratio 0.7 (1.1-1.8); Anion Gap 5.6 mEq/L (5.0-15.0); Bilirubin Total 0.4 mg/dL (0.2-1.0); Globulin 4.1 g/dL (2.3-3.5); Potassium 4.6 mEq/L (3.5-5.1); Protein, Total 7.1 g/dL (6.4-8.2); Troponin High Sensitivity 10.6 pg/mL (<58.9)
--- OUTSIDE RECORDS SUMMARY | 2024-02-20 11:38 | XMS REPORT | Continuity of Care Document ---
Author Name Unknown Address [address] [facility] [address] th[address] Address [address] [facility] [address] [place] [address] Care Team Providers Care Supervisor [employer] Name Role Phone [email or web address] Attending Clinician Unavaila ble [email or web address] Admitting Clinician Unavaila ble Payers Payer Name Policy Type Policy Number Effective Date Expirati on Date Source MEDICARE [place]: Roamer [id number] 2007 00:00:00 [employer] - FOR LIFE (MEDICARE SUPPLEMENT) [id number] Problems Condition Name Condition Details Condition Category Status Onset Date Resolution Date Last Treatment Date Treating Clinician Comments Source Disorder of bone Disorder of Bone Problem Active 01-30 00:00: 00 [facility] Gynecologi tejinder examinatio n abnormal Gynecologi tejinder Examinatio n Abnormal Problem Active 10-28 00:00: 00 [facility] Lateral cystocele Lateral Cystocele Problem Active 10-28 00:00: 00 [facility] Atrophic vaginitis Atrophic Vaginitis Problem Active 10-28 00:00: 00 [facility] Incomplete uterovagin al prolapse Incomplete Uterovagin al Prolapse Problem Active 10-28 00:00: 00 [facility] Social History Smoking Status Start Date Stop Date Source Former Smoker [facility] Medications Ordered Medication Name Filled Medication Name Start Date Stop Date Current Medication? Ordering Clinician Indication Dosage Frequency Signature (SIG) Comments Components Source atorvastati n atorvastati n No atorvastat in [facility] Missy Missy No Missy [facility] cinacalcet cinacalcet No cinacalcet [facility] fluticasone 250 mcg-salmete rol 50 mcg/dose blistr powdr for inhalation Inhale 1 puff twice a day by inhalation route. fluticasone 250 mcg-salmete rol 50 mcg/dose blistr powdr for inhalation Inhale 1 puff twice a day by inhalation route. No 1puff(s ) BID fluticason e 250 mcg-salmet beni 50 mcg/dose blistr powdr for inhalation Inhale 1 puff twice a day by inhalation route. [facility] loratadine loratadine No loratadine [facility] losartan losartan No losartan [facility] nifedipine nifedipine No nifedipine [facility] Vitamin D3 Vitamin D3 No Vitamin D3 [facility] Vital Signs Vital Name Observation Time Observation Value Comments S ource Body Weight 2023-11-13 00:00:00 161.8 [lb_av] [facility] BP Diastolic 2023-11-13 00:00:00 93 mm[Hg] [facility] BMI (Body Mass Index) 2023-11-13 00:00:00 26.1 kg/m2 [facility] BP Systolic 2023-11-13 00:00:00 183 mm[Hg] [facility] Height 2023-11-13 00:00:00 66 [in_i] [facility] Procedures Procedure Date / Time Performed Performing Clinicia n Source MAMMO, screening, digital, bilateral 2023-11-13 00:00:00 [facility] Plan of Care Planned Activity Planned Date Details Comments Source Diagnostic Test Pending 2023-11-13 00:00:00 urin alysis, dipstick [code = urinalysis, dipstick] [facility] Future Appointment 2024-11-13 09:15:00 Coral guevara, [address], [place] [address] [facility] Encounters Start Date/Time End Date/Time Encounter Type Admission Type Attending Clinicians Care Facility Care Department Encounter ID Source 2023-11-13 00:00:00 2023-11-13 00:00:00 Outpatient [email or web address] darwinklaudia_S [facility] [id number] [facility] 2023-11-13 00:00:00 2023-11-13 00:00:00 ILEANA Ivan: [address], [place] [address] , Ph. [facility] - [email or web address] sun Valdes* [id number] [facility] 2023-10-30 00:00:00 2023-10-30 00:00:00 Outpatient GC_[email or web address]_Ka diyala_S [facility] [id number] [facility] 2023-07-02 00:00:00 2023-07-02 00:00:00 [facility] [id number] [facility] Results Test Description Test Time Test Comments Results Result Co mments Source [facility]
--- NOTE | 2024-02-20 12:27 | RAD REPORT ---
EXAM DESCRIPTION: RAD - Hip Right 1 View - 02/20/2024 8:44 am CLINICAL HISTORY: RT TOTAL HIP ARTHRO COMPARISON: No comparisons TECHNIQUE: Right hip, 2 views. FINDINGS: A right hip prothesis components in place, with the exception of the femoral head componen t. Other metallic surgical instruments in place obscure evaluation. Hardware is in expected location. Skin defect along the lateral thigh. IMPRESSION: Intraoperative right hip arthroplasty as above.
[2024-02-20 13:38] VITALS: BMI 25.4
[2024-02-20] MEDS: CEFAZOLIN 1 GM in NA CHLORIDE 0.9% 50 ML IVPB SCH (14:12)
--- NOTE | 2024-02-20 14:12 | EKG ---
Test Date: 2024-02-20 Test Time: 10:32:36 Quality Control Engineer: YULIYA MEASUREMENT RESULTS: Intervals: Rate: 33 ME: 140 QRSD: 122 QT: 580 QTc: 429 [place]: P: 59 ME: 140 QRS: -51 T: -44 INTERPRETIVE STATEMENTS: Marked sinus bradycardia Left anterior fascicular block Left ventricular hypertrophy with QRS widening T wave abnormality, consider inferolateral ischemia Abnormal ECG Compared to ECG 12/12/2017 14:56:02 T-wave abnormality now present Possible ischemia now present Sinus rhythm no longer present Myocardial infarct finding no longer present Electronically Signed On 02-20-24 14:10:23 CDT by Hakan Cruz
[2024-02-20 17:28] LABS: Hematocrit 35.8 % (36.0-45.0); Hemoglobin 11.6 g/dL (12.0-15.0)
--- NOTE | 2024-02-20 18:40 | P.SSS ---
Patient History Date of Service: 02/20/24 Reason for admission: LOW HR History of Present Illness: DELMA UNDERWENT SURGERY BY DR. JORGE. OR NURSE CALLED PATIENT HAD LOW HR. I ASKED TO DO STAT EKG AND CONSULT INFANTRY OPERATIONS SPECIALIST. EKG SHOW SINUS BRADYCARDIA.. SHE TAKES NO MEDS THAT CAN DO THIS. THIS IS NEW FOR HER. BY THE TIME I SEE HE RAT LUNCH TIME HER HR IS STARTING TO COME UP. SHE HAS NO SS WITH IT. Allergies No Known Drug Allergies Allergy (Verified 02/20/24 06:37) Unknown Home medications list reviewed: Yes Home Medications: Loratadine [Claritin*] 10 mg PO DAILY 05/14/12 Nifedipine [Adalat cc] 90 mg PO DAILY 05/14/12 Aspirin [Missy Chewable] 81 mg PO DAILY 12/12/17 Fluticasone [Flonase 50mcg Nasal [place]] 2 sprays NS DAILY PRN 12/12/17 Losartan Potassium [Cozaar] 100 mg PO DAILY 12/12/17 Atorvastatin Calcium [Lipitor] 20 mg PO BEDTIME 02/15/24 Bimatoprost [Lumigan] 1 gtt LEFT EYE BEDTIME 02/15/24 Brimonidine Tartrate/Timolol [Combigan 0.2%-0.5% Eye Drops] 1 gtt LEFT EYE BID 02/15/24 Cholecalciferol (Vitamin D3) [Vitamin D3] 1,000 unit PO DAILY 02/15/24 Propylene Glycol/Peg 400 [Systane 0.3-0.4% Eye Drops] 1 gtt LEFT EYE BID 02/15/24 - Past Medical/Surgical History Has patient received pneumonia vaccine in the past: Yes Diabetic: No -: HTN -: HLD -: Glaucoma -: BILATERAL CATARACTS -: TUBAL LIGATION -: CLAVICLE FRACTURE - Family History Mother -: Heart disease Notes: MOTHER HAD PACEMAKER - Social History Smoking Status: Former smoker Alcohol use: Yes CD- Drugs: No Caffeine use: Yes Place of Residence: Home Review of Systems 10-point ROS is otherwise unremarkable Physical Examination - Vital Signs Temperature: 97.3 F Blood Pressure: 134/60 Pulse: 49 Respirations: 16 Pulse Ox (%): 100 - Physical Exam General: Oriented x3, Mild distress HEENT: Atraumatic, PERRLA, Mucous membr. moist/pink, EOMI, Sclerae nonicteric Neck: Supple, 2+ carotid pulse no bruit, No LAD, Without JVD or thyroid abnormality Respiratory: Clear to auscultation bilaterally, Normal air movement Cardiovascular: Regular rate/rhythm, Normal S1 S2 Gastrointestinal: Normal bowel sounds, No tenderness Musculoskeletal: No tenderness Integumentary: No rashes Neurological: Normal gait, Normal speech, Normal strength at 5/5 x4 extr, Normal tone, Normal affect Lymphatics: No axilla or inguinal lymphadenopathy - Studies Laboratory Data (last 24 hrs) 02/20/24 02/20/24 02/20/24 17:00 10:46 10:46 WBC 11.00 H Hgb 11.6 L 12.2 Hct 35.8 L 37.5 Plt Count 179 Sodium 141 Potassium 4.6 BUN 25 H Creatinine 0.96 Glucose 135 H Total Bilirubin 0.4 AST 23 ALT 37 Alkaline Phosphatase 76 02/20/24 09:08 WBC Hgb Cancelled Hct Cancelled Plt Count Sodium Potassium BUN Creatinine Glucose Total Bilirubin AST ALT Alkaline Phosphatase - Diagnosis (Problem(s)) (1) Sinus bradycardia Current Visit: Yes Status: Acute Plan: THIS IS MOST LIKELY TEMPORARY BEC OF ANESTHESIA. SHE HAD NO ISSUES BEFORE SHE MAY GO HOME IN AM IF ALL STABLE. - Disposition Disposition: ROUTINE DISCHARGE
--- NOTE | 2024-02-20 19:08 | CON ---
Date of Consultation: 02/20/2024 Reason For Consultation: Preop cardiac risk assessment. History Of Present Illness: This is an 83-year-old female who was hospitalized for right total hip a rthroplasty, and I was asked to evaluate the cardiac risk prior to surgery. As per history, there is no history of coronary artery disease or cardiac disease. Denies having any chest pain. No shortne ss of breath. Does not have any significant exercise limitation. No nausea, vomiting, or diarrhea. She feels generally very well. She had her surgery today and saw her by bedside and she is complete ly asymptomatic. No chest pain. Past Medical History: Hypertension, dyslipidemia. Medications: Refer reconciliation sheet for detailed list. Allergies: NO KNOWN DRUG ALLERGIES. Family History: No premature coronary artery disease or cancer. Social History: Does not smoke or drink. Does not use any drugs. Review of Systems: All systems reviewed, they were negative except what was mentioned in the HPI. Physical Examination: Vital Signs: Reviewed. Head and Neck: Pupils are equal, reactive to light. Intact eye movements. No JVD. No cervical lym phadenopathy. Neck is supple. Thyroid is not enlarged. Lungs: Clear to auscultation bilaterally. No rhonchi, wheezing, or crackles. No accessory muscle u se. Heart: Regular but it is very bradycardic, sinus randi. Heart rate is in the 30s. No extra sounds. Abdomen: Soft, nontender. Bowel sounds positive. No organomegaly. No masses or hernia. No rigidi ty or rebound. Extremities: No edema, clubbing, or cyanosis. Intact pulses. Skin: No rash. No nodule. Neurologic: Alert, awake, oriented x3. No acute focal deficits appreciated. Investigations: BUN 25, creatinine is 0.96. Assessment/recommendation: 1.Cardiac preop risk assessment. This patient went through this surgery without problems. No appar ent complications. No symptoms. I will monitor her while she is in the hospital. 2.Sinus bradycardia. No heart block. She will need to get a treadmill exercise stress test and the n see her heart rate response to activity. If there is appropriate response, then no treatment is ne eded. Not sure if she is taking any beta blockers at home. If she is, this is to be discontinued. I will monitor the patient while she is in the hospital and close followup as an outpatient is recomm ended. SR/MODL Voice ID: [id number] Report ID: [id number]
[2024-02-20] MEDS: ATORVASTATIN 20 MG TAB PO SCH (20:16)
[2024-02-20] MEDS: NA CHLORIDE 0.9% 100 ML ONE (21:07)
[2024-02-21] MEDS: HYDROCODONE/APAP 7.5/325 MG TAB PO PRN (02:35)
[2024-02-21 04:38] LABS: Hematocrit 31.9 % (36.0-45.0); Hemoglobin 10.6 g/dL (12.0-15.0)
[2024-02-21 04:52] LABS: Anion Gap 4.7 mEq/L (5.0-15.0); Potassium 4.7 mEq/L (3.5-5.1)
[2024-02-21] MEDS: ENOXAPARIN 40 MG/0.4 ML SQ SCH (08:17)
[2024-02-21] MEDS: ASPIRIN 81 MG CHEWABLE TABLET PO SCH (08:18)
[2024-02-21] MEDS: LORATADINE 10 MG TAB PO SCH (08:18)
[2024-02-21] MEDS: LOSARTAN POTASSIUM 50 MG TABLET PO SCH (08:18)
[2024-02-21] MEDS: ONDANSETRON 4 MG/2 ML VIAL IV PRN (14:16)
--- NOTE | 2024-02-21 15:22 | P.PN ---
Subjective Date of Service: 02/21/24 Chief Complaint: LOW HR Subjective: No new changes, No C/O voiced, Tolerating diet, Ambulating, Improving Review of Systems 10-point ROS is otherwise unremarkable Physical Examination - Vital Signs Temperature: 98.0 F Blood Pressure: 100/50 Pulse: 61 Respirations: 16 Pulse Ox (%): 98 - Physical Exam General: Alert, In no apparent distress HEENT: Atraumatic, PERRLA, EOMI Neck: Supple, JVD not distended Respiratory: Clear to auscultation bilaterally, Normal air movement Cardiovascular: Regular rate/rhythm, Normal S1 S2 Gastrointestinal: Normal bowel sounds, No tenderness Musculoskeletal: No tenderness Integumentary: No rashes Neurological: Normal speech, Normal tone, Normal affect Lymphatics: No axilla or inguinal lymphadenopathy - Studies Laboratory Data (last 24 hrs) 02/21/24 02/21/24 02/20/24 04:12 04:12 17:00 Hgb 10.6 L D 11.6 L Hct 31.9 L 35.8 L Sodium 136 D Potassium 4.7 BUN 33 H Creatinine 1.13 H Glucose 110 H Medications List Reviewed: Yes Assessment And Plan - Current Problems (Diagnosis) (1) HTN (hypertension) Current Visit: Yes Status: Acute Plan: continue losartan 25 mg daily (2) HLD (hyperlipidemia) Current Visit: Yes Status: Acute Plan: continue lipitor (3) Sinus bradycardia Current Visit: Yes Status: Acute Plan: no signs of pauses on tele, HR 40-50s. will arrange outpatient 14 days event monitor.
--- NOTE | 2024-02-21 17:33 | P.PN ---
Subjective Date of Service: 02/21/24 Chief Complaint: LOW HR Subjective: Improving HER BRADYCARDIA IS BETTER SHE IS STABLE FOR REHAB. REHAB WILL TAKE HER IN AM. Review of Systems 10-point ROS is otherwise unremarkable General: Weakness Physical Examination - Vital Signs Temperature: 97.5 F Blood Pressure: 117/67 Pulse: 60 Respirations: 17 Pulse Ox (%): 100 - Physical Exam General: In no apparent distress HEENT: Atraumatic, PERRLA, EOMI Neck: Supple, JVD not distended Respiratory: Clear to auscultation bilaterally, Normal air movement Cardiovascular: Regular rate/rhythm, Normal S1 S2 Gastrointestinal: Normal bowel sounds, No tenderness Musculoskeletal: No tenderness Integumentary: No rashes Neurological: Normal speech, Normal tone, Normal affect Lymphatics: No axilla or inguinal lymphadenopathy - Studies Laboratory Data (last 24 hrs) 02/21/24 02/21/24 04:12 04:12 Hgb 10.6 L D Hct 31.9 L Sodium 136 D Potassium 4.7 BUN 33 H Creatinine 1.13 H Glucose 110 H Medications List Reviewed: Yes Assessment And Plan - Current Problems (Diagnosis) (1) Sinus bradycardia Current Visit: Yes Status: Acute Plan: THIS IS MOST LIKELY TEMPORARY BEC OF ANESTHESIA. SHE HAD NO ISSUES BEFORE SHE MAY GO HOME IN AM IF ALL STABLE. IMPROVED WILL BE OKAY FOR REHAB.
[2024-02-21 20:38] VITALS: O2SAT 100
[2024-02-22 05:15] LABS: Hemoglobin 10.9 g/dL (12.0-15.0)
[2024-02-22 05:20] LABS: Anion Gap 2.7 mEq/L (5.0-15.0); Potassium 4.7 mEq/L (3.5-5.1)
[2024-02-22 08:41] VITALS: TEMP 97.6
[2024-02-22 09:38] VITALS: BP 111/60
--- NOTE | 2024-02-22 21:57 | P.DS ---
Admission Date: 02/21/24 Discharge Date: 02/22/24 Disposition: TRANSFER TO INPATIENT REHAB Discharge Condition: FAIR Reason for Admission: LOW HR - Problems (1) Sinus bradycardia Status: Acute Brief History of Present Illness: DELMA UNDERWENT SURGERY BY DR. JORGE. OR NURSE CALLED PATIENT HAD LOW HR. I ASKED TO DO STAT EKG AND CONSULT CHIEF CLERK SHELTER. EKG SHOW SINUS BR ADYCARDIA.. SHE TAKES NO MEDS THAT CAN DO THIS. THIS IS NEW FOR HER. BY THE TIME I SEE HE RAT LUNCH TIME HER HR IS STARTING TO COME UP. SHE HAS NO SS WITH IT. Hospital Course: DELMA HAS HAD BRADYCARDIA AFTER ANESTHESIA FOR HIP REPLACEMENT. SHE HAS IMPROVED TO 70 PER MIN. THERE WAS NO NEED OF ANY MEDS OF PACEMAKER. SEH REMAINED ASYMPOTOMATIC THROUGHOUT. SHE IS STABLE TO GO TO REHAB. Vital Signs/Physical Exam: Temp Pulse Resp BP Pulse Ox 97.6 F 65 14 111/60 100 02/22/24 08:00 02/22/24 09:00 02/22/24 09:00 02/22/24 09:00 02/22/24 09:00 Laboratory Data at Discharge: WBC 11.00 thou/uL (4.3-10.9) H 02/20/24 10:46 Hgb 10.9 g/dL (12.0-15.0) L 02/22/24 04:19 Hct 33.0 % (36.0-45.0) L 02/22/24 04:19 Plt Count 179 thou/uL (152-406) 02/20/24 10:46 PT 12.3 SECONDS (9.5-12.5) 02/15/24 09:42 INR 1.12 02/15/24 09:42 APTT 31.8 SECONDS (24.3-36.9) 02/15/24 09:42 Sodium 137 mEq/L (136-145) 02/22/24 04:19 Potassium 4.7 mEq/L (3.5-5.1) 02/22/24 04:19 BUN 41 mg/dL (7-18) H 02/22/24 04:19 Creatinine 1.46 mg/dL (0.55-1.02) H 02/22/24 04:19 Glucose 102 mg/dL (74-106) 02/22/24 04:19 Total Bilirubin 0.4 mg/dL (0.2-1.0) 02/20/24 10:46 AST 23 U/L (15-37) 02/20/24 10:46 ALT 37 U/L (13-56) 02/20/24 10:46 Alkaline Phosphatase 76 U/L (45-117) 02/20/24 10:46 Home Medications: Loratadine [Claritin*] 10 mg PO DAILY 05/14/12 Nifedipine [Adalat cc] 90 mg PO DAILY 05/14/12 Aspirin [Missy Chewable Aspirin] 81 mg PO DAILY 12/12/17 Fluticasone [Flonase 50MCG Nasal [place]*] 2 sprays NS DAILY PRN 12/12/17 Losartan Potassium [Cozaar*] 100 mg PO DAILY 12/12/17 Atorvastatin Calcium [Lipitor] 20 mg PO BEDTIME 02/15/24 Bimatoprost [Lumigan] 1 gtt LEFT EYE BEDTIME 02/15/24 Brimonidine Tartrate/Timolol [Combigan 0.2%-0.5% Eye Drops] 1 gtt LEFT EYE BID 02/15/24 Cholecalciferol (Vitamin D3) [Vitamin D3] 1,000 unit PO DAILY 02/15/24 Propylene Glycol/Peg 400 [Systane 0.4-0.3% Eye Drop] 1 gtt LEFT EYE BID 02/15/24 Docusate [Colace Cap*] 200 mg PO DAILY PRN cap 02/21/24 Followup: Juan Lam MD [Primary Care Provider] - Rodney Jorge MD [ACTIVE - CAN ADMIT] -
== END 2024-02-22 09:30 | DRG 470 ==
LOC: OR 06:00 → 4TH 09:07 → 3RD-ICU 12:33 → OBSVTOIN 02-21 11:12
PROVIDERS: ADMIT Orthopaedic Surgery; ATTEND Orthopaedic Surgery
PROC: 0SR903Z Replacement of Right Hip Joint with Ceramic Synthetic Substitute, Open Approach (ICD-10-PCS; principal; 2024-02-21)
DX: M13.851 Other specified arthritis, right hip (principal); E78.5 Hyperlipidemia, unspecified; I10 Essential (primary) hypertension; M24.851 Other specific joint derangements of right hip, not elsewhere classified; I25.10 Atherosclerotic heart disease of native coronary artery without angina pectoris; T41.45XA Adverse effect of unspecified anesthetic, initial encounter; R00.1 Bradycardia, unspecified; Z98.51 Tubal ligation status; Z79.82 Long term (current) use of aspirin; Z79.899 Other long term (current) drug therapy
CPT/HCPCS: 36415; 71046; 80048; 80053; 81001; 84484; 85014; 85018; 85025; 85610; 85730; 88304; 88305; 88311; 93005; 97110; 97116; 97162; 97530; A4216; C1776; G0378; G0379; J0690; J1100; J1650; J2250; J2371; J2405; J2704; J3010; J7120